=== PATIENT | female | born 1985 | race Caucasian/White ===

== ENCOUNTER 2017-10-05 05:25 | Inpatient (IN) | payer MEDICAID ==
[2017-10-05] MEDS ORDERED: PEPCID IV ONE (06:07)
[2017-10-05] MEDS ORDERED: REGLAN IV ONE (06:07)
[2017-10-05] MEDS ORDERED: BICITRA PO ONE (06:07)
[2017-10-05 06:25] LABS: Hematocrit 38.1 % (30.3-42.9); Hemoglobin 12.6 gm/dl (10.1-14.3); Mean Corpuscular HGB Conc 33 % (30-34); Mean Corpuscular Hemoglobin 29 pg (28-32); Mean Corpuscular Volume 88 fl (79-97); Platelet Count 167 K/mm3 (140-440); Red Blood Count 4.34 M/mm3 (3.65-5.03); Red Cell Distribution Width 14.8 % (13.2-15.2); White Blood Count 7.3 K/mm3 (4.5-11.0)
[2017-10-05] MEDS ORDERED: LACTATED RINGERS 1,000 ML IV SCH (07:00)
[2017-10-05] MEDS ORDERED: PITOCin/NS 20 UNIT/1000ML DRIP 20,000 MILLIUNITS/1,000 ML BAG IV ONE (07:07)
[2017-10-05] MEDS ORDERED: ANCEF/STERILE WATER 2 GM/20 ML 2 GM/20 ML SYRINGE IV ONE (07:08)
--- NOTE | 2017-10-05 07:17 | Anesthesia Consultation ---
Anesthesia Consult and Med Hx Date of service: 10/05/17 - Airway Anesthetic Teeth Evaluation: Good ROM Head & Neck: Adequate Mental/Hyoid Distance: Adequate Mallampati Class: Class II Intubation Access Assessment: Probably Good - Pre-Operative Health Status ASA Pre-Surgery Classification: ASA2 Proposed Anesthetic Plan: Epidural, Spinal - Pulmonary Hx Asthma: No COPD: No Hx Pneumonia: No - Cardiovascular System Hx Hypertension: No - Central Nervous System Hx Seizures: No Hx Psychiatric Problems: No - Endocrine Hx Renal Disease: No Hx End Stage Renal Disease: No Hx Hypothyroidism: No Hx Hyperthyroidism: No - Hematic Hx Anemia: No Hx Sickle Cell Disease: No - Other Systems Hx Alcohol Use: No
--- NOTE | 2017-10-05 07:19 | Anesthesia Day of Surgery ---
Anesthesia Day of Surgery - Day of Surgery Patient Examined: Yes Patient H&P Reviewed: Yes Patient is NPO: Yes
[2017-10-05] MEDS ORDERED: ANCEF/STERILE WATER 2 GM/20 ML IV NR (07:30)
[2017-10-05] MEDS ORDERED: ZOFRAN IV PRN (07:30)
[2017-10-05] MEDS ORDERED: TORADOL IV PRN (07:30)
[2017-10-05] MEDS ORDERED: BENADRYL IV PRN (07:30)
[2017-10-05] MEDS ORDERED: DILAUDID IV PRN (07:30)
[2017-10-05] MEDS ORDERED: PHENERGAN PR PRN (07:30)
[2017-10-05] MEDS ORDERED: MORPHINE ONE (07:50)
--- NOTE | 2017-10-05 07:56 | History and Physical Report ---
History of Present Illness Date of admission: 10/05/17 05:25 Medications and Allergies Allergies Allergy/AdvReac Type Severity Reaction Status Date / Time No Known Allergies Allergy Verified 10/05/17 06:14 Home Medications Medication Instructions Recorded Confirmed Last Taken Type No Known Home Medications [No 10/05/17 10/05/17 Unknown History Reported Home Medications] Active Meds: Active Medications Cefazolin Sodium (Ancef/Sterile Water 2 Gm/20 Ml) 2 gm IV PREOP NR Stop: 10/05/17 18:00 Diphenhydramine HCl (Benadryl) 12.5 mg IV Q2H PRN PRN Reason: Itching Hydromorphone HCl (Dilaudid) 0.5 mg IV Q4H PRN PRN Reason: breakthrough pain > 7/10 Lactated Ringer's (Lactated Ringers) 1,000 mls @ 2,250 mls/hr IV PREOP PAWEL Stop: 10/06/17 07:27 Oxytocin/Sodium Chloride (Pitocin/Ns 20 Unit/1000ml Drip) 20 units in 1,000 mls @ 0 mls/hr IV DIRECT PAWEL PRN Reason: As Directed Ketorolac Tromethamine (Toradol) 30 mg IV Q6H PRN PRN Reason: Pain, Moderate (4-6) Stop: 10/10/17 07:29 Naloxone HCl (Narcan 0.4 Mg/1 Ml) 0.2 mg IV Q2MIN PRN PRN Reason: Res Rate </= 8 or 02 SAT < 92% Ondansetron HCl (Zofran) 4 mg IV Q8H PRN PRN Reason: Nausea And Vomiting Promethazine HCl (Phenergan) 25 mg [place] Q6H PRN PRN Reason: Nausea And Vomiting Sodium Chloride (Sodium Chloride Flush Syringe 10 Ml) 10 ml IV PRN PRN PRN Reason: flush Exam - Constitutional Vitals: Temp Pulse Resp BP Pulse Ox 97.8 F 18 10/05/17 07:00 10/05/17 07:00 Results - Labs CBC & Chem 7: 10/05/17 06:06
[2017-10-05] MEDS ORDERED: PITOCin/NS 20 UNIT/1000ML DRIP 20 UNITS/1,000 ML BAG IV SCH ×2 (08:00→11:30)
[2017-10-05] MEDS ORDERED: SODIUM CHLORIDE FLUSH SYRINGE 10 ML IV PRN ×2 (08:00→12:00)
[2017-10-05] MEDS ORDERED: NARCAN 0.4 MG/1 ML IV PRN ×2 (08:00→11:30)
--- NOTE | 2017-10-05 08:09 | History and Physical Report ---
History of Present Illness Date of examination: 10/05/17 Date of admission: 10/05/17 05:25 History of present illness: Patient presented for a scheduled repeat section. Patient status post 2 previous sections. Her course was complicated by gestational diabetes and chronic hepatitis B. Vital Signs Height: 55.0 in. Menstrual History Regularity: regular LMP: 01/05/2017 LMP reliability: month known LMP character: normal test type: urine test Date: 03/21/2017 BC at conception: other Planned ? no EDC Calculations LMP: 10/12/2017 EDC Confirmation: 10/12/2017 Past History : 3 Term Births: 2 Premature Births: 0 Living Children: 2 Para: 2 Mult. Births: 0 Prev : 2 Prev. attempt? none Aborta: 0 Elect. Ab: 0 Spont. Ab: 0 Ectopics: 0 # 1 Delivery date: 01/01/2009 Weeks Gestation: 40w5d Delivery type: Hours of labor: 12 Anesthesia type: epidural Delivery location: [facility] Sex: male weight: 7.44 Comments: Amionitis tachycardia # 2 Delivery date: 09/09/2010 Weeks Gestation: 39 Delivery type: Anesthesia type: spinal Sex: female weight: 7.69 Past Medical History: no hx of dvt while taking ocp no hx of sti Negative Past Medical History Past Surgical History: c/s x2 Family History Summary: Other family member - Has Family History of Hypertension - Entered On: 03/21/2017 Other family member - Has Family History of Diabetes - Entered On: 03/21/2017 Other family member - Has Family History of CVA or Stroke - Entered On: 2016 General Comments - FH: No Family History of DVT/PE on OCP no breast, ovarian or colon cancer Social History: non smoker no etoh, no illicit drug use Patient is Risk Factors: Smoked Tobacco Use: Current every day smoker Counseled to quit/cut down: yes Drug use: no HIV high-risk behavior: no Alcohol use: no Exercise: no Seatbelt use: 100 % Dietary Counseling: pn yes PAP Smear History: Date of Last PAP Smear: 03/07/2015 Results: normal Past Medical History Abnormal PAP: negative LUIZ Exposure: negative Infertility: negative Uterine Anomaly: negative Uterine Surgery (not C/S): negative Other Gynecologic Problems: negative Social Hx: non smoker no etoh, no illicit drug use Patient is Infection History Hx of STD: none HIV Risk Eval: no Genetic History Congenital Heart Defect: Mom: no Dad: no Clau Disease: Mom: no Dad: no Thalassemia Mom: no Dad: no Neural Tube Defect Mom: no Dad: no Down's Syndrome Mom: no Dad: no James-Sachs Mom: no Dad: no Sickle Cell Disease/Trait Mom: no Dad: no Hemophilia Mom: no Dad: no Muscular Dystrophy Mom: no Dad: no Cystic Fibrosis Mom: no Dad: no Pershing Chorea Mom: no Dad: no Mental Retardation Mom: no Dad: no Fragile X Mom: no Dad: no Other Genetic/Chromosomal Disorder Mom: no Dad: no Child w/other defect Mom: no Dad: no Enviromental Exposures Xray Exposure: no Medication, drug, or alcohol use since LMP: no Chemical/Other Exposure: no Exposure to Cat Liter: no Hx of Parvovirus (Fifth Disease): no FALSECurrent Allergies (reviewed today): * NKDA (Critical) Past History Past Medical History: other (see HPI) Past Surgical History: section, other (HPI) 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) Family/Genetic History: other (see HPI) Social history: other (see HPI) - Obstetrical History Expected Date of Delivery: 10/12/17 Actual Gestation: 39 Week(s) 0 Day(s) : 3 Para: 2 Hx # Term Pregnancies: 2 Number of Pregnancies: 0 Spontaneous Abortions: 0 Induced : 0 Number of Living Children: 2 Medications and Allergies Allergies Allergy/AdvReac Type Severity Reaction Status Date / Time No Known Allergies Allergy Verified 10/05/17 06:14 Home Medications Medication Instructions Recorded Confirmed Last Taken Type Ferrous Sulfate [Feosol 325 MG tab] 325 mg PO BID #60 tablet 10/05/17 Unknown Rx Ibuprofen [Motrin 800 MG tab] 800 mg PO Q6H PRN #30 tablet 10/05/17 Unknown Rx Lidocain2.5%/Prilocai2.5% [Emla] 5 gm TP ONCE #1 tube 10/05/17 Unknown Rx oxyCODONE /ACETAMINOPHEN [Percocet 1 - 2 tab PO Q4H PRN #30 tablet 10/05/17 Unknown Rx 5/325 mg] Active Meds: Active Medications Cefazolin Sodium (Ancef/Sterile Water 2 Gm/20 Ml) 2 gm IV PREOP NR Stop: 10/05/17 18:00 Diphenhydramine HCl (Benadryl) 12.5 mg IV Q2H PRN PRN Reason: Itching Hydromorphone HCl (Dilaudid) 0.5 mg IV Q4H PRN PRN Reason: breakthrough pain > 7/10 Lactated Ringer's (Lactated Ringers) 1,000 mls @ 2,250 mls/hr IV PREOP PAWEL Stop: 10/06/17 07:27 Oxytocin/Sodium Chloride (Pitocin/Ns 20 Unit/1000ml Drip) 20 units in 1,000 mls @ 0 mls/hr IV DIRECT PAWEL PRN Reason: As Directed Ketorolac Tromethamine (Toradol) 30 mg IV Q6H PRN PRN Reason: Pain, Moderate (4-6) Stop: 10/10/17 07:29 Naloxone HCl (Narcan 0.4 Mg/1 Ml) 0.2 mg IV Q2MIN PRN PRN Reason: Res Rate </= 8 or 02 SAT < 92% Ondansetron HCl (Zofran) 4 mg IV Q8H PRN PRN Reason: Nausea And Vomiting Promethazine HCl (Phenergan) 25 mg [place] Q6H PRN PRN Reason: Nausea And Vomiting Sodium Chloride (Sodium Chloride Flush Syringe 10 Ml) 10 ml IV PRN PRN PRN Reason: flush - Vital Signs Vital signs: Vital Signs Temp Resp 97.8 F 18 10/05/17 07:00 10/05/17 07:00 Temp Pulse Resp BP Pulse Ox 97.8 F 18 10/05/17 07:00 10/05/17 07:00 - Physical Exam Breasts: Positive: deferred Cardiovascular: Regular rate Lungs: Positive: Normal air movement Abdomen: Positive: normal appearance, soft Genitourinary (Female): Positive: normal external genitalia Vagina: Positive: normal moisture Uterus: Positive: enlarged Anus/Rectum: Positive: normal perianal skin - Obstetrical FHR: auscultation normal Results Result Diagrams: 10/05/17 06:06 All other labs normal. Assessment and Plan - Patient Problems (1) 39 weeks gestation of Current Visit: Yes Status: Acute (2) Previous section complicating Current Visit: Yes Status: Acute Plan to address problem: Patient admitted for repeat section. Patient informed the risks of the surgery include bleeding possibly bleeding heavy enough to require blood transfusion, infection possible damage to bowel bladder ureter. Patient understands that due to her previous surgery she is an increased risks of adjacent organ damage. Patient's questions answered. Patient understands and desires to proceed. (3) Hepatitis B affecting Current Visit: Yes Status: Acute (4) Gestational diabetes Current Visit: Yes Status: Acute Qualifiers: Gestational diabetes mellitus control: diet-controlled Trimester: third trimester Qualified Code(s): O24.410 - Gestational diabetes mellitus in , diet controlled
[2017-10-05] MEDS ORDERED: ZOFRAN ONE (08:42)
[2017-10-05] MEDS ORDERED: NACL 0.9% IR ONE (08:43)
[2017-10-05] MEDS ORDERED: WATER FOR IRRIG STERILE IR ONE (08:44)
[2017-10-05] MEDS ORDERED: NEO SYNEPHRINE/NS Syringe(OR USE) IV ONE (09:00)
--- NOTE | 2017-10-05 09:13 | Operative Report ---
Operative Report Operative Report: Date of procedure: 10/05/2017 Pre-operative diagnosis: Intrauterine at 39 weeks with the previous section 2 Post-operative diagnosis: Same Procedure name(s): Repeat low transverse section Surgeon: Juanjo Engle MD Chair Inspector: Anesthesia: Spinal EBL: 700 mL Complications: None Findings: Family adhesions between the omentum and anterior uterine wall. Male weight 7 lbs. 8 oz. Apgars 9 at 1 minute and 9 at 5 minutes Specimen(s): None Procedure: The patient was brought to the operating room. A spinal was placed without any complications. She was then placed in left lateral tilt. Prepped and draped in the usual sterile manner. After testing for adequate anesthesia level, a Pfannenstiel incision was made through her previous scar. This incision was taken down to the fascia. The fascia was then nicked in the midline. This incision was extended out laterally with Graff scissors. The fascia was then sharply and bluntly from the underlying rectus muscles. The rectus muscles were bluntly and sharply . The peritoneum was then entered with the fluid jet cutter operator's fingers. This incision was spread vertically with care not to damage the bladder below. The bladder flap was then formed sharply and bluntly with Metzenbaum scissors. The Pranav self- retaining tractor was then placed without any difficulty. A transverse incision was made in lower uterine segment. This incision was extended laterally with the operators fingers. The amniotic sac was then entered bluntly with the fluid jet cutter operator's fingers. The infant was delivered from the vertex position. Bulb suction on the mother's abdomen. Cord was double clamped and cut. The was then passed to the nursery personnel who were in attendance. The above scores were given by the nursery personnel. The placenta was then bluntly removed. The uterus was then externalized and wiped clean the remaining products. The uterine incision was closed in layers. The first incision was closed in a locking manner using 0 Vicryl. This was followed by imbricating stitch also with 0 Vicryl. This closure was hemostatic. The bladder flap was copiously irrigated and found to be hemostatic. The pelvis was copiously irrigated and found to be hemostatic. The uterus was then placed back to the patient's abdomen. The retractors were removed. The rectus muscles were inspected and found to be hemostatic. The fascia was then closed in a running manner using 0 Vicryl. This incision was hemostatic irrigation Bovie. The skin was reapproximated with 4-0 Vicryl subcuticularly. The patient tolerated procedure well. Her urine was clear. The was admitted to the [facility] nursery. The patient was accompanied to recovery room in good condition. Instrument count correct 3
[2017-10-05] MEDS ORDERED: ANCEF/NS 1 GM/50 ML 1 GM/50 ML BAG IV SCH (11:02)
[2017-10-05] MEDS ORDERED: NACL 0.45% 1000 ML 1,000 ML IV SCH (11:30)
[2017-10-05] MEDS: TORADOL IV SCH ×3 (12:00→23:57)
[2017-10-05] MEDS ORDERED: VISTARIL IM ONE (15:46)
[2017-10-05] MEDS: ceFAZolin 1 GM in NACL 0.9% 20 ML IV SCH (17:23)
[2017-10-05 20:50] LABS: Hematocrit 34.6 % (30.3-42.9); Hemoglobin 11.4 gm/dl (10.1-14.3)
[2017-10-06] MEDS: ceFAZolin 1 GM in NACL 0.9% 20 ML IV SCH (01:48)
[2017-10-06] MEDS: MOTRIN PO PRN ×3 (04:26→17:11)
[2017-10-06] MEDS: NORCO 5/325 PO PRN ×4 (04:26→21:46)
[2017-10-06] MEDS: TORADOL IV SCH (05:57)
--- NOTE | 2017-10-06 07:17 | Progress Note ---
Assessment and Plan - Patient Problems (1) delivery delivered Onset Date: ~10/05/17 Current Visit: Yes Status: Acute Plan to address problem: pt w/o complaint VSS FF below umb Lochia small Dressing D&I remove this AM H&H drop r/t blood loss with surgery No s/sx of anemia Doing well s/p section P: continue pathway Advance diet and activity as tolerated Subjective - Subjective Date of service: 10/06/17 (resting No c/o voiced) Principal diagnosis: Day # 1 s/p repeat c/s Patient reports: appetite normal, voiding normally, pain well controlled : doing well Objective - Vital Signs Latest vital signs: Vital Signs Temp Pulse Resp BP BP Pulse Ox 10/06/17 04:26 18 10/06/17 03:22 98.2 F 83 16 96/54 95 10/06/17 00:16 99.0 F 84 16 91/50 92 10/05/17 21:18 99.2 F 83 16 99/48 94 10/05/17 17:27 98.3 F 80 18 93/58 99 10/05/17 10:35 98.7 F 89 18 115/67 96 10/05/17 10:01 98.6 F 89 18 106/61 10/05/17 10:00 89 11 L 106/61 95 10/05/17 09:50 77 15 110/60 95 10/05/17 09:40 82 13 115/68 96 10/05/17 09:30 78 15 102/55 98 10/05/17 09:20 82 18 110/55 97 10/05/17 09:10 90 14 101/53 97 10/05/17 09:07 97 10/05/17 09:06 98.2 F 93 H 16 101/53 98 Intake and Output 10/05/17 10/06/17 10/06/17 22:59 06:59 14:59 Intake Total 100 660 Output Total 1150 Balance -1050 660 Intake: Oral 480 Intake, Free Water 100 180 Output: Urine 1150 Indwelling Catheter 850 Uretheral (Vora) 300 Other: Total, Intake Amount 480 Total, Output Amount 350 - Exam Breasts: Present: normal Cardiovascular: Present: Regular rate Lungs: Present: Normal air movement Abdomen: Present: normal appearance, soft Uterus: Present: normal, fundal height below umbilicus Extremities: Present: normal Deep Tendon Reflex Grade: Normal +2 Incision: Present: normal, dry, intact, dressed (to be removed today) - Labs Labs: Abnormal lab results 10/05/17 10/05/17 10/05/17 Range/Units 12:29 16:50 19:03 POC Glucose 61 L 52 L 54 L (70-105) 10/06/17 Range/Units 01:41 POC Glucose 50 L (70-105)
[2017-10-06] MEDS: MILK OF MAGNESIA PO PRN (11:46)
[2017-10-07] MEDS: MOTRIN PO PRN ×5 (00:13→23:37)
[2017-10-07] MEDS: NORCO 5/325 PO PRN ×5 (05:09→23:35)
--- NOTE | 2017-10-07 08:54 | Progress Note ---
<MYRA JACOBS - Last Filed: 10/07/17 08:50> Assessment and Plan patient ambulating in room, c/o pain in right buttock and is unable to sit or lay on right side. VSSAF, H&H stable. Will consult Dr. Diaz on plan. - Patient Problems (1) delivery delivered Onset Date: ~10/05/17 Current Visit: Yes Status: Acute (2) Hepatitis B affecting Current Visit: Yes Status: Acute Subjective - Subjective Date of service: 10/07/17 Principal diagnosis: Day # 2 s/p repeat c/s Patient reports: appetite normal, voiding normally, flatus, ambulating normally , other (hard painful area in right buttock), no dizzy ambulation, no nauseated [place]: doing well, bottle feeding Objective - Vital Signs Latest vital signs: Vital Signs Temp Pulse Resp BP BP Pulse Ox 10/07/17 05:13 18 10/07/17 05:09 20 10/07/17 00:13 20 10/07/17 00:10 98.3 F 83 18 117/74 98 10/06/17 21:46 20 10/06/17 16:27 98.2 F 78 18 100/63 95 10/06/17 12:49 97.1 F L 79 18 99/53 100 Intake and Output 10/06/17 10/07/17 10/07/17 23:59 07:59 15:59 Intake Total 120 240 Balance 120 240 Intake: Oral 120 240 Other: Total, Intake Amount 120 120 # Voids Indwelling Catheter 1 1 - Exam Breasts: Present: normal Cardiovascular: Present: Regular rate Lungs: Present: Clear to auscultation, Normal air movement Abdomen: Present: normal appearance, soft Vulva: both: normal Uterus: Present: normal, firm, fundal height at umbilicus Extremities: Present: normal Deep Tendon Reflex Grade: Normal +2 Incision: Present: normal, dry, intact Comments: right buttock hard and firm, skin appears normal without color change or appearance of any wounds or sores. patient c/o pain on entire right side. She denies any injury or injection. - Labs Labs: Abnormal lab results 10/06/17 10/06/17 Range/Units 11:46 16:36 POC Glucose 67 L 58 L (70-105) <JESS DIAZ - Last Filed: 10/07/17 10:01> Subjective - Subjective Interval history: Pt standing in bathroom preparing for shower, area on (R) gluteus swollen and firm.Dr. Castañeda consulted Objective - Vital Signs Latest vital signs: Vital Signs Temp Pulse Resp BP BP Pulse Ox 10/07/17 05:13 18 10/07/17 05:09 20 10/07/17 00:13 20 10/07/17 00:10 98.3 F 83 18 117/74 98 10/06/17 21:46 20 10/06/17 16:27 98.2 F 78 18 100/63 95 10/06/17 12:49 97.1 F L 79 18 99/53 100 Intake and Output 10/06/17 10/07/17 10/07/17 22:59 06:59 14:59 Intake Total 120 240 Balance 120 240 Intake: Oral 120 240 Other: Total, Intake Amount 120 120 # Voids Indwelling Catheter 1 1 - Labs Labs: Abnormal lab results 10/06/17 10/06/17 Range/Units 11:46 16:36 POC Glucose 67 L 58 L (70-105)
[2017-10-07] MEDS: MILK OF MAGNESIA PO PRN (08:55)
--- NOTE | 2017-10-07 10:12 | Consultation ---
History of Present Illness Consult date: 10/07/17 Requesting physician: JESS DIAZ Chief complaint: right buttock pain - History of present illness History of present illness: 32 yo F s/p csection 10/05/17 who c/o right buttock pain since POD 1. She states she laid on her back for almost 16 hours after the surgery and noticed pain and swelling in the right buttock the day after csection. She states it has become more painful over the last 24 hours and she has a difficult time laying on her back. No f/c, cp, sob, n/v, abd pain. She is tolerating a diet. No drainage from the buttock. Past History Past Medical History: No medical history Past Surgical History: Social history: no significant social history, other (see HPI) Family history: no significant family history Medications and Allergies Allergies Allergy/AdvReac Type Severity Reaction Status Date / Time No Known Allergies Allergy Verified 10/05/17 06:14 Home Medications Medication Instructions Recorded Confirmed Last Taken Type Ferrous Sulfate [Feosol 325 MG tab] 325 mg PO BID #60 tablet 10/05/17 Unknown Rx Ibuprofen [Motrin 800 MG tab] 800 mg PO Q6H PRN #30 tablet 10/05/17 Unknown Rx Lidocain2.5%/Prilocai2.5% [Emla] 5 gm TP ONCE #1 tube 10/05/17 Unknown Rx oxyCODONE /ACETAMINOPHEN [Percocet 1 - 2 tab PO Q4H PRN #30 tablet 10/05/17 Unknown Rx 5/325 mg] Active Meds: Active Medications Acetaminophen/Hydrocodone Bitart ([place] 5/325) 1 each PO Q4H PRN PRN Reason: Pain, Moderate (4-6) Last Admin: 10/07/17 08:55 Dose: 1 each Sodium Chloride (Nacl 0.45% 1000 Ml) 1,000 mls @ 125 mls/hr IV DIRECT PAWEL Last Admin: 10/05/17 17:22 Dose: 125 mls/hr Oxytocin/Sodium Chloride (Pitocin/Ns 20 Unit/1000ml Drip) 20 units in 1,000 mls @ 250 mls/hr IV DIRECT PAWEL Ibuprofen (Motrin) 800 mg PO Q6H PRN PRN Reason: Pain, Mild (1-3) Last Admin: 10/07/17 05:13 Dose: 800 mg Magnesium Hydroxide (Milk Of Magnesia) 30 ml PO QHS PRN PRN Reason: Constip Unrelieved By Senna Last Admin: 10/07/17 08:55 Dose: 30 ml Naloxone HCl (Narcan 0.4 Mg/1 Ml) 0.1 mg IV Q2MIN PRN PRN Reason: Res Rate </= 8 or 02 SAT < 92% Sodium Chloride (Sodium Chloride Flush Syringe 10 Ml) 10 ml IV PRN PRN PRN Reason: flush Review of Systems All systems: negative (see hpi) Exam Vital Signs Temp Resp 97.8 F 18 10/05/17 07:00 10/05/17 07:00 Narrative exam: Gen; AAOx3. NAD CV: s1, S2+ resp: NO audible wheezes Ext: no c/c/e Buttock: right buttock is TTP, +edema, +/- induration. No fluctuance, erythema, or warmth appreciated. No drainage. L buttock is soft, NT. Results - Labs 10/05/17 20:34 Abnormal lab results 10/06/17 10/06/17 Range/Units 11:46 16:36 POC Glucose 67 L 58 L (70-105) Assessment and Plan 32 yo F with pain, edema of right buttock, r/o abscess 1. will obtain ultrasound to r/o abscess 2. pain control prn 3. warm compress to area for comfort 4. d/w Dr. Diaz
--- NOTE | 2017-10-07 13:53 | Ultrasound Report ---
ULTRASOUND UNLISTED PROCEDURE (back) History: Right buttock swelling, pain, evaluate for abscess. Findings: Targeted ashby scale ultrasound was obtained in the right buttock region at the site of swelling. The images demonstrate nonspecific subcutaneous edema but no evidence for fluid collection, abscess or soft tissue gas. Impression: Nonspecific subcutaneous edema suggestive of cellulitis.
[2017-10-07 15:12] LABS: Anion Gap 17 mmol/L; BUN/Creatinine Ratio 23; Blood Urea Nitrogen 9 mg/dL (7-17); Calcium 8.5 mg/dL (8.4-10.2); Carbon Dioxide 26 mmol/L (22-30); Chloride 104.6 mmol/L (98-107); Creatine Kinase 955 units/L (30-135); Glucose 97 mg/dL (65-100); Potassium 4.1 mmol/L (3.6-5.0); Sodium 143 mmol/L (137-145)
[2017-10-07] MEDS: NACL 0.9% 1000 ML 1,000 ML IV SCH ×2 (17:00→23:43)
[2017-10-08] MEDS: MOTRIN PO PRN ×2 (05:46→12:35)
[2017-10-08] MEDS: NORCO 5/325 PO PRN ×2 (05:53→12:35)
[2017-10-08 06:21] LABS: Anion Gap 15 mmol/L; BUN/Creatinine Ratio 20; Blood Urea Nitrogen 8 mg/dL (7-17); Calcium 7.8 mg/dL (8.4-10.2); Carbon Dioxide 24 mmol/L (22-30); Chloride 106.6 mmol/L (98-107); Creatine Kinase 707 units/L (30-135); Glucose 119 mg/dL (65-100); Potassium 3.8 mmol/L (3.6-5.0); Sodium 142 mmol/L (137-145)
[2017-10-08] MEDS: NACL 0.9% 1000 ML 1,000 ML IV SCH (06:58)
--- NOTE | 2017-10-08 09:04 | Progress Note ---
Assessment and Plan - Patient Problems (1) Soft tissue swelling Current Visit: Yes Status: Acute Plan to address problem: -will await recommendations from surgery team. -will d/c home once cleared (2) delivery delivered Onset Date: ~10/05/17 Current Visit: Yes Status: Acute Plan to address problem: -routine pp/post op care; cleared for d/c home Subjective - Subjective Date of service: 10/08/17 Principal diagnosis: Day # 3 s/p repeat c/s 2)buttock swelling Interval history: Pt still c/o numbness and tenderness of buttock area. She has not other c/o and really desires to go home. I advised that once she is cleared by surgery provider, she will be d/c home as she is cleared from obgyn/ post op standpoint to go home. Pt expressed understanding. Patient reports: appetite normal, voiding normally, pain well controlled [place]: doing well, bottle feeding Objective - Vital Signs Latest vital signs: Vital Signs Temp Pulse Resp BP Pulse Ox 10/08/17 05:53 18 10/08/17 05:46 18 10/08/17 01:15 97.8 F 75 17 96/38 98 10/07/17 23:37 18 10/07/17 23:35 18 10/07/17 17:40 97.6 F 86 18 102/65 95 10/07/17 09:55 18 Intake and Output 10/07/17 10/08/17 10/08/17 22:59 06:59 14:59 Intake Total 1396.667 Balance 1396.667 Intake: IV 1396.667 NaCl 0.9% 1000 ml 1,000 1396.667 ml @ 100 mls/hr IV DIRECT PAWEL Rx#:[id number] Other: # Voids Indwelling Catheter 1 - Exam Cardiovascular: Present: Normal S1, Normal S2 Lungs: Present: Clear to auscultation, Normal air movement Abdomen: Present: normal appearance, soft. Absent: distention, tenderness, guarding Uterus: Present: normal, firm, fundal height below umbilicus. Absent: tenderness Extremities: Present: normal, other (+indurated area on right upper buttock. No reddness, no drainage, no pinpoint lesion noted). Absent: tenderness, edema Incision: Present: normal, dry, intact - Labs Labs: Abnormal lab results 10/07/17 10/08/17 Range/Units 14:00 04:00 Creatinine 0.4 L 0.4 L (0.7-1.2) mg/dL Glucose 119 H (65-100) mg/dL Calcium 7.8 L (8.4-10.2) mg/dL Total Creatine Kinase 955 H 707 H (30-135) units/L
--- NOTE | 2017-10-08 10:27 | Progress Note ---
Assessment and Plan 32 yo F with pain, edema of right buttock s/p csection 1. exam improved 2. 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 ok to dc from surgery standpoint 4. pt instructed to call my office if fevers>100.4, increased swelling, pain, numbness of buttock or leg. She was also advised to keep hydrated. 5. d/w nursing who will notify Dr. Samantha Castañeda, DO [address], [address] [place], [place] Subjective Date of service: 10/08/17 Narrative: Pt seen and examined. c/o right buttock pain with sitting. Otherwise, ambulating without difficulty. No f/c, cp, sob, abd pain. Objective Vital Signs - 12hr 10/07/17 10/07/17 10/08/17 23:35 23:37 01:15 Temperature 97.8 F Pulse Rate 75 Respiratory 18 18 17 Rate Blood Pressure 96/38 Blood Pressure [Right] O2 Sat by Pulse 98 Oximetry 10/08/17 10/08/17 10/08/17 05:46 05:53 09:08 Temperature 97.9 F Pulse Rate 80 Respiratory 18 18 20 Rate Blood Pressure Blood Pressure 114/61 [Right] O2 Sat by Pulse Oximetry - General physical appearance Narrative Exam: Gen: AAOx3. NAD Gluteal/LE: Right buttock soft with point tenderness in the center of the buttock without evidence of induration, fluctuance, erythema. motor and sensory intact. - Labs 10/05/17 20:34 10/08/17 04:00 Diabetes panel 10/07/17 10/08/17 Range/Units 14:00 04:00 Sodium 143 142 (137-145) mmol/L Potassium 4.1 3.8 (3.6-5.0) mmol/L Chloride 104.6 106.6 (98-107) mmol/L Carbon Dioxide 26 24 (22-30) mmol/L BUN 9 8 (7-17) mg/dL Creatinine 0.4 L 0.4 L (0.7-1.2) mg/dL Glucose 97 119 H (65-100) mg/dL Calcium 8.5 7.8 L (8.4-10.2) mg/dL Calcium panel 10/07/17 10/08/17 Range/Units 14:00 04:00 Calcium 8.5 7.8 L (8.4-10.2) mg/dL Pituitary panel 10/07/17 10/08/17 Range/Units 14:00 04:00 Sodium 143 142 (137-145) mmol/L Potassium 4.1 3.8 (3.6-5.0) mmol/L Chloride 104.6 106.6 (98-107) mmol/L Carbon Dioxide 26 24 (22-30) mmol/L BUN 9 8 (7-17) mg/dL Creatinine 0.4 L 0.4 L (0.7-1.2) mg/dL Glucose 97 119 H (65-100) mg/dL Calcium 8.5 7.8 L (8.4-10.2) mg/dL Adrenal panel 10/07/17 10/08/17 Range/Units 14:00 04:00 Sodium 143 142 (137-145) mmol/L Potassium 4.1 3.8 (3.6-5.0) mmol/L Chloride 104.6 106.6 (98-107) mmol/L Carbon Dioxide 26 24 (22-30) mmol/L BUN 9 8 (7-17) mg/dL Creatinine 0.4 L 0.4 L (0.7-1.2) mg/dL Glucose 97 119 H (65-100) mg/dL Calcium 8.5 7.8 L (8.4-10.2) mg/dL
--- NOTE | 2017-10-08 10:35 | Discharge Summary ---
<SHAY ARMSTRONG - Last Filed: 10/08/17 10:44> Providers - Providers Date of Admission: 10/05/17 05:25 Attending physician: SOSA DUCKWORTH 10/05/17 11:02 Consult to Sample Tester [CONS] Routine Reason For Exam: 10/07/17 09:49 Consult to Physician [CONS] Routine Consulting Provider: SHAY ARMSTRONG Reason For Exam: Gluteal swelling Place consult to:: patti wallace Notified:: yes Phone number called:: [phone] Was contact made?: Yes If yes, spoke with:: dr. armstrong Time called:: 09:00 Comment:: dr. omi wallace phone call Primary care physician: SOSA DUCKWORTH Hospitalization Condition at discharge: Good Disposition: DC-30 STILL A PATIENT Plan - Discharge Medications Prescriptions: Ferrous Sulfate [Feosol 325 MG tab] 325 mg PO BID #60 tablet Ibuprofen [Motrin 800 MG tab] 800 mg PO Q6H PRN #30 tablet PRN Reason: Pain Lidocain2.5%/Prilocai2.5% [Emla] 5 gm TP ONCE #1 tube oxyCODONE /ACETAMINOPHEN [Percocet 5/325 mg] 1 - 2 tab PO Q4H PRN #30 tablet PRN Reason: Pain, Moderate - Provider Discharge Summary Additional instructions: [] Smoking cessation referral if applicable(refer to patient education folder for contact #) [] Refer to [facility] Booklet Call your doctor immediately for: * Fever > 100.5 * Heavy vaginal bleeding ( >1 pad per hour) * Severe persistent headache * Shortness of breath * Reddened, hot, painful area to leg or breast * Drainage or odor from incision. * Keep incision clean and dry at all times and follow doctor's instructions regarding bathing/showering General Surgery: Shay Armstrong, DO [address], [address] [place], [place] Call if increased pain, swelling, numbness of right buttock or leg. - Follow up plan Follow up: SOSA DUCKWORTH MD [Primary Care Provider] - 7 Days <CAMERON STEVENSON - Last Filed: 10/08/17 14:14> Providers - Providers Date of Admission: 10/05/17 05:25 Date of discharge: 10/08/17 Attending physician: SOSA DUCKWORTH 10/05/17 11:02 Consult to Sample Tester [CONS] Routine Reason For Exam: 10/07/17 09:49 Consult to Physician [CONS] Routine Consulting Provider: SHAY ARMSTRONG Reason For Exam: Gluteal swelling Place consult to:: patti wallace Notified:: yes Phone number called:: [phone] Was contact made?: Yes If yes, spoke with:: dr. armstrong Time called:: 09:00 Comment:: dr. omi wallace phone call Primary care physician: SOSA DUCKWORTH Hospitalization Reason for admission: section Delivery: Procedure: section Procedure details: See operative report Incision: normal, dry, intact complications: other (soft tissue inflammation and the buttock area surgery was consult. All studies were negative. Patient is to follow-up as an outpatient should she have any fevers or any worsening of her symptoms as per recommendations by surgeon.) Hospital course: Patient was admitted for repeat section. Patient underwent repeat section was not complicated. On post operative day #1 patient was noted to have swelling of the soft tissue of the right upper buttock area. There was some firmness and tenderness over centimeters area. The surgery team was consulted on postoperative day #2. This area was evaluated with imaging and was reviewed by the surgeon system controller. It was decided that patient did not need treatment or any further evaluation at this time. She was given information for the surgeon's office and she is to follow-up as outpatient should she have any other complications. The area was noted to have resolution and the swelling and as well as improvement of the erythema late by postoperative day #3. Patient will be discharged home on postoperative day #3 with all the appropriate follow-ups with both the PRODUCTION ARTIST as well as the general surgeon. - Discharge Diagnoses (1) Soft tissue swelling Status: Acute (2) delivery delivered Status: Acute Plan - Provider Discharge Summary Additional instructions: [] Smoking cessation referral if applicable(refer to patient education folder for contact #) [] Refer to [facility] Booklet Call your doctor immediately for: * Fever > 100.5 * Heavy vaginal bleeding ( >1 pad per hour) * Severe persistent headache * Shortness of breath * Reddened, hot, painful area to leg or breast * Drainage or odor from incision. * Keep incision clean and dry at all times and follow doctor's instructions regarding bathing/showering
[2017-10-08 17:14] VITALS: BP 114/68
== END 2017-10-08 15:45 | disposition home or self-care (01) | DRG 765 ==
LOC: APU 05:25 → OB 11:01
PROVIDERS: ADMIT Obstetrics & Gynecology; ATTEND Obstetrics & Gynecology
PROC: 10D00Z1 Extraction of Products of Conception, Low, Open Approach (ICD-10-PCS; principal; 2017-10-05)
DX: O34.211 Maternal care for low transverse scar from previous cesarean delivery (principal); O98.42 Viral hepatitis complicating childbirth; B18.1 Chronic viral hepatitis B without delta-agent; M62.82 Rhabdomyolysis; F17.200 Nicotine dependence, unspecified, uncomplicated; O99.334 Smoking (tobacco) complicating childbirth; O75.89 Other specified complications of labor and delivery; Z3A.39 39 weeks gestation of pregnancy; Z37.0 Single live birth; Z82.49 Family history of ischemic heart disease and other diseases of the circulatory system; Z83.3 Family history of diabetes mellitus; Z82.3 Family history of stroke; Z71.6 Tobacco abuse counseling; O24.420 Gestational diabetes mellitus in childbirth, diet controlled
CPT/HCPCS: 36415; 76999; 80048; 82550; 82962; 85014; 85018; 85027; 86592; 86850; 86900; 86901; C1765; J0690; J1885; J2270; J2370; J2405; J2590; J2765; J3410; J7030; J7120